=== PATIENT | male | born 1950 | race Caucasian/White ===

== ENCOUNTER 2018-06-03 17:40 | Emergency (ER) | payer MEDICARE, BC ==
[~2018-06-03] VITALS: Ht 162.6 cm; Wt 57.3 kg
[~2018-06-03 17:40] MED LIST: ANTIBIOTIC; ASPIRIN 81M81 MG/TA2 PO; PRINIVIL10 MG PO; TUMS500 MG
[2018-06-03 17:48] VITALS: BP 148/91; TEMP 97.7
[2018-06-03] MEDS ORDERED: NORCO 325 MG-51 TAB PO (19:45)
[2018-06-03 20:05] VITALS: PULSE 70
== END 2018-06-03 20:05 | disposition home or self-care (01) ==
LOC: COL.ER 17:40
DX: S52.502A Unspecified fracture of the lower end of left radius, initial encounter for closed fracture (principal); I10 Essential (primary) hypertension; K21.9 Gastro-esophageal reflux disease without esophagitis; Z79.82 Long term (current) use of aspirin; W19.XXXA Unspecified fall, initial encounter; Y92.830 Public park as the place of occurrence of the external cause; Y93.73 Activity, racquet and hand sports
CPT/HCPCS: J2405; J3010; J7040; Q4050

== ENCOUNTER 2019-04-28 07:44 | Day surgery (SDC) | payer MEDICARE, BC ==
[~2019-04-28] VITALS: Ht 162.6 cm; Wt 55.9 kg
[~2019-04-28 07:44] MED LIST changes: +NORCO 325 MG-51 TAB PO; -TUMS500 MG; +TUMS500 MG PO
[2019-04-28 08:24] VITALS: BP 132/77; PULSE 68; TEMP 97.5
[2019-04-28] MEDS ORDERED: ELIDEL1% TOP (08:33)
[2019-04-28] MEDS ORDERED: ZANTAC 150MG T150 MG PO (08:34)
[2019-04-28] MEDS ORDERED: METROCREAM CREA45 GM TP (08:34)
[2019-04-28] MEDS ORDERED: OMEGA-3 1000 MG1 CAP PO (08:35)
[2019-04-28] MEDS ORDERED: DOXYCYCLINE 50M50 MG PO (08:35)
--- NOTE | 2019-04-28 08:37 | NUR ---
TO RM 1 AT 0752- CALL LIGHT IN REACH AT BEDSIDE
[2019-04-28 12:48] VITALS: BP 128/73; PULSE 70; TEMP 98.4
--- NOTE | 2019-04-28 12:48 | NUR ---
TO RM 1 PER CART FROM PACU. ALERT ORIENTED X3, TALKING TO STAFF AND . C/O PAIN 2/10 ON RIGHT SIDE. DENIES PAIN MEDS AT THIS TIME. 02 SAT 96% ON ROOM AIR. RECEIVED WATER DENIES NAUSEA
[2019-04-28] MEDS ORDERED: NORCO 325 MG-51 TAB PO (12:59)
[2019-04-28 13:00] VITALS: BP 126/74; PULSE 66
--- NOTE | 2019-04-28 13:00 | NUR ---
RECEOVED 2ND CUP OF WATER AND CRACKERS. SITTING UP AND TOERATING WELL.
[2019-04-28 13:15] VITALS: BP 114/61; PULSE 74
--- NOTE | 2019-04-28 13:15 | NUR ---
ATE 100% AND TOLERATED WELL.
[2019-04-28 13:30] VITALS: BP 113/70; PULSE 74
--- NOTE | 2019-04-28 13:30 | NUR ---
AMBULATED TO BATHROOM. VOIDED AND TOLERATED WELL.
--- NOTE | 2019-04-28 13:45 | NUR ---
RECEIVED DISCHARGE INSTRUCTIONS AND VERBALIZED UNDERSTANDING. AT BEDSIDE. DISCONTINUED IV AND INT- CATHETER INTACT PATIENT GETTING DRESSED.
--- NOTE | 2019-04-28 14:00 | NUR ---
DISCHARGED PER WC BY NURSING STAFF TO PRIVATE CAR IN CARE OF TRANG
== END 2019-04-28 14:15 | disposition home or self-care (01) ==
LOC: SDCO 07:44
DX: K40.20 Bilateral inguinal hernia, without obstruction or gangrene, not specified as recurrent (principal)
CPT/HCPCS: C1781; J1100; J2405; J2704; J2710; J3010; J7120